=== PATIENT | male | born 1995 | race Caucasian/White ===

== ENCOUNTER 2016-08-14 16:52 | Emergency (ER) | payer SELFPAY ==
[~2016-08-14] VITALS: Ht 182.9 cm; Wt 66.0 kg
[~2016-08-14 16:52] MED LIST: BACT800T5 PO; CEPH500C3 PO; Z.0.NO CURRENT MEDS
[2016-08-14 16:53] VITALS: BP 125/59; PULSE 52; RESP 20; TEMP 98.6; O2SAT 99
[2016-08-14] MEDS ORDERED: CEPH-460 PO (17:16)
[2016-08-14] MEDS ORDERED: BACT800T5 PO (17:16)
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
== END 2016-08-14 17:44 | disposition home or self-care (01) ==
LOC: NEPD 16:52
DX: L08.9 Local infection of the skin and subcutaneous tissue, unspecified (principal); L03.312 Cellulitis of back [any part except buttock and flank]; B95.62 Methicillin resistant Staphylococcus aureus infection as the cause of diseases classified elsewhere; V29.9XXA Motorcycle rider (driver) (passenger) injured in unspecified traffic accident, initial encounter
CPT/HCPCS: 86403; 87070; 87186; 87205; 99283